=== PATIENT | female | born 1970 | race Caucasian/White ===

== ENCOUNTER 2018-10-20 18:20 | Emergency (ER) | payer SELFPAY ==
[~2018-10-20] VITALS: Ht 162.6 cm; Wt 63.5 kg
[2018-10-20] MEDS ORDERED: [UNRECOGNIZED DRUG - REMARK] (18:54)
[2018-10-20] MEDS ORDERED: HYDR1TAB94 PO (20:17)
== END 2018-10-20 20:28 | disposition home or self-care (01) ==
LOC: ER 18:20
DX: S52.571A Other intraarticular fracture of lower end of right radius, initial encounter for closed fracture (principal); W01.198A Fall on same level from slipping, tripping and stumbling with subsequent striking against other object, initial encounter; Z88.0 Allergy status to penicillin; Z88.8 Allergy status to other drugs, medicaments and biological substances; Z79.899 Other long term (current) drug therapy
CPT/HCPCS: 29125; 73110; 99283-25

== ENCOUNTER → 2021-03-09 | Outpatient (CLI) | payer OTHER ==
[~2021-03-09] MED LIST: HYDR1TAB94 PO; [UNRECOGNIZED DRUG - REMARK]
== END | disposition home or self-care (01) ==
LOC: LAB 08:46 → LAB SHORT 08:46
DX: D22.62 Melanocytic nevi of left upper limb, including shoulder (principal); L57.0 Actinic keratosis; B88.9 Infestation, unspecified; L08.9 Local infection of the skin and subcutaneous tissue, unspecified
CPT/HCPCS: 88305

== ENCOUNTER → 2023-06-29 | Outpatient (CLI) | payer OTHER | END | disposition home or self-care (01) | LOC: LAB 14:33 → LAB SHORT 14:33 | DX: R39.15 Urgency of urination (principal) | CPT/HCPCS: 87086 ==

== ENCOUNTER → 2024-12-05 | Outpatient (CLI) | payer BC | LOC: LAB 16:00 → LAB SHORT 16:00 | DX: K13.0 Diseases of lips (principal); B00.1 Herpesviral vesicular dermatitis | CPT/HCPCS: 87070; 87077; 87102; 87106; 87147; 87186; 87205; 87252 ==

== ENCOUNTER → 2025-01-24 | Outpatient (CLI) | payer BC ==
[2025-01-25 10:26] LABS: Candida Group, PCR NOT DETECTED (NOT DETECT); Candida glabrata-krusei, PCR NOT DETECTED (NOT DETECT)
[2025-01-25 10:50] LABS: Bacterial Vaginosis PCR Positive (NEGATIVE)
[2025-01-25 10:59] LABS: Chlamydia Trachomatis Vaginal NOT DETECTED (NOT DETECT); Neisseria Gonorrhoea Vaginal NOT DETECTED (NOT DETECT)
[2025-01-27 09:10] LABS: HEPATITIS C AB CIA INTERP Negative (Negative); HEPATITIS C ANTIBODY CIA INDEX 0.11 IV
[2025-01-27 10:33] LABS: HIV 1,2 COMBO ANTIGEN/ANTIBODY Negative (Negative)
== END ==
LOC: LAB 18:01 → LAB SHORT 18:01
PROVIDERS: Nurse Practitioner Family
DX: Z11.3 Encounter for screening for infections with a predominantly sexual mode of transmission (principal); R30.0 Dysuria
CPT/HCPCS: 81515; 86592; 86803; 87086; 87389; 87491; 87591